=== PATIENT | male | born 1995 | race Caucasian/White ===

== ENCOUNTER 2019-08-21 01:41 | Emergency (ER) | payer SELFPAY ==
--- NOTE | 2019-08-21 02:20 | NUR ---
Pt seen walking out of ER by admitting. LWBS at this time
== END 2019-08-21 02:20 | disposition left against medical advice (07) ==
LOC: SED 01:41
DX: H57.89 Other specified disorders of eye and adnexa (principal); Z53.21 Procedure and treatment not carried out due to patient leaving prior to being seen by health care provider